=== PATIENT | female | born 1975 | race Caucasian/White ===

== ENCOUNTER 2023-08-09 12:54 | Emergency (ER) | payer MEDICAID, SELFPAY ==
[2023-08-09] VITALS (13 sets, daily range): BP systolic 154–166; BP diastolic 75–81; PULSE 84–104; RESP 15–25; TEMP 38.1–38.3; O2SAT 96–99
--- NOTE | 2023-08-09 13:15 | RT.EKG_ITS ---
APPROVED REPORT Exam: Resting ECG Reason for Exam: ? IN interval Patient Location: E HR:88 bpm ECG Measurements Heart Rate 88 AXIS IN 155 P 64 QRSd 98 QRS -54 QT 375 T 70 QTc 455 Conclusion Sinus rhythm...normal P axis, V-rate 60- 99 Left anterior fascicular block...axis(240,-40), init forces inf Narrow complex normal sinus rhythm at a rate of 88. Normal axis. Intervals within normal limits. N o ST segment abnormalities. T wave inversion in aVL. No prior for comparison. No acute injury kaycee green.
--- NOTE | 2023-08-09 13:15 | ED.GENADUL_ITS ---
Discharge Plan Disposition Patient Disposition: Home Discharge Details Clinical Impression: Cough with fever Primary Care Provider: She Stuart ED Provider: Apolinar Arshad Home Meds and New Rx's Prescriptions: New doxycycline hyclate 100 mg capsule 100 mg PO BID 14 Days Qty: 10 0RF fluconazole 150 mg tablet 150 mg PO ONCE Qty: 1 0RF Rx Instructions: as a single dose Continued acetaminophen [Tylenol] 325 MG tablet 650 mg PO Q4H PRN PRNQty: 0 0RF Rx Instructions: for pain metformin [Glumetza] 500 mg tablet,ER harry.retention 24 hr 500 mg PO DAILY duloxetine [Cymbalta] 20 mg capsule,delayed release(DR/EC) 20 mg PO DAILY Patient Comments: Tapering off. 20mg every other day Discharge Instructions Instructions: Fever, Adult (DC) Additional Instructions: You were seen in the emergency department for your cough and shortness of breath. Your CAT scan showed no sign of a blood clot in your lungs nor any signs of a pneumonia. As we discussed you are receiving an antibiotic to take to treat tick borne illnesses. Please cover up when outdoors and wear sunscreen and a hat as this antibiotic can make you sensitive to the sun. Please follow- up next week with your primary care provider. Please return to the emergency department if you develop worsening chest pain shortness of breath nausea or vom iting. Discharge Data Discharge Date/Time-TO BE ENTERED AT DEPARTURE: 08/09/23 16:14 HPI General Date/Time Provider Initiated Documentation: 08/09/23 13:06 . HPI Narrative: MDM This is an overall well-appearing but febrile and tachycardic 48-year-old female with myalgias cough shortness of breath concerning for multiple etiologies. Given fevers and cough I was concerned about sepsis so I melecio I lactate blood cultures and treated empirically with cefepime and vancomycin and added doxycycline to cover for tickborne illness. Patient is not altered to suggest anaplasmosis. No pain out of proportion to suggest necrotizing soft tissue infection. No dysuria nor frequency so doubt UTI. No nausea nor vomiting no diarrhea given her soft nontender abdomen with chronic abdominal pain I am not suspicious for appendicitis nor diverticulitis so I do not feel the patient required a CAT scan. Patient is not altered and has no nuchal rigidity so my suspicion is low for encephalitis and meningitis so I did not feel that she required a lumbar puncture. No sore throat to suggest strep pharyngitis. No recent travel to suggest atypical infection. Not immunocompromise so my suspicion is low for opportunistic infection. No rash to suggest zoster. Given shortness of breath with tachycardia and fever will obtain D-dimer to assess for PE. Will tolerate up to 1000 and based on years criteria. Patient is not an IV drug user and has no significant limitations in range of motion of her left hip so my suspicion for septic joint is low so I do not feel that the patient requires arthrocentesis. Will reassess following labs and imaging. 1:52 PM Normal reassuring lactate. CBC with no anemia no thrombocytopenia no leukocytosis. Mild lymphopenia. 2:09 PM Negative troponin. Comprehensive metabolic panel showing normal renal function. Mild anion gap mild hyperglycemia but normal bicarbonate??not consistent with DKA. Mildly elevated AST and ALT. Mild hypoalbuminemia. No BRENDAN. 2:43 PM Positive dimer at 5700 urinalysis nitrite leukoesterase negative not consistent with UTI. Will order CTA chest. Patient's tachycardia is resolved. She still febrile. Will treat with ibuprofen. Negative hCG. Fluvid negative. 08/09 Late charting due to patient care. No evidence of PE aneurysm or dissection. Unremarkable CT chest with known pneumonia. Patient's tachycardia improved. She remained mildly febrile but given that she was eating and drinking and had no nausea or vomiting I discharged her with a course of doxycycline. We discussed sun exposure and avoiding sun exposure by covering up and wearing sunscreen. I advised ED return for any syncope pain or if she had any other concerns. I advised primary care follow-up. Chronic conditions affecting the care of the patient: Elevated BMI History obtained from an outside historian: N/A External record review: No [facility] [place] Diagnostic interpretations performed by me: Per my independent interpretation chest x-ray shows:No acute cardiopulmonary process. Per my independent interpretation EKG shows: Narrow complex normal sinus rhythm at a rate of 88. Normal axis. Intervals within normal limits. No ST segment abnormalities. T wave inversion in aVL. No prior for comparison. No acute injury pattern. ]Medications: Doxycycline cefepime IV fluids vancomycin Social determinants of health affecting disposition: N/A Management discussed with: N/A Treatment/interventions considered: N/A Response to therapies provided: N/A HPI This is a 48-year-old female who spends significant amount of time outdoors arriving to the emergency department via private vehicle in the setting of [facility] [place] for the past approximately 2 weeks. Patient reports that she began having some left hip and right wrist swelling and pain. 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 She recalls that several weeks ago on her proximal right thigh she was bit by a tick. She is a daily smoker and drinks ethanol several times a week. She smokes marijuana. She denies IV drug use. She has had no nausea nor vomiting. She had some shortness of breath. She never had a PE nor DVT. She does not take oral contraceptive pills. She denies dysuria and frequency. She endorses chronic abdominal pain. No recent falls. No recent travel. No history of HIV. She also endorses a productive cough. No sore throat. Exam General: Well-appearing in no acute distress speaking in complete sentences. Head: Normocephalic, atraumatic. Eye: Extraocular eye movements intact. No conjunctival injection. No scleral icterus. Ear, nose, mouth, throat: Grossly normal inspection. Normal voice, handling secretions normally. Neck: Trachea midline. Cardiovascular: Well-perfused distal extremities. Rapid regular rate Respiratory: Nonlabored respiration. Clear lungs bilaterally Gastrointestinal: Nondistended abdomen. Soft. Nontender. No rebound. No guarding. Musculoskeletal: No edema. Moving all 4 extremities spontaneously. Good range of motion bilateral hips. No significant swelling bilateral wrists. No limitations in movement in the hands bilaterally. Skin: Normal for age and race, grossly normal temperature and turgor. No acute rash. With patient's nurse Naty patient rolled onto her side. She had no signs of any erythema migrans nor embedded ticks in the area on her proximal left thigh where she had removed a tick in the past. Neurologic: Alert and appropriate, no apparent acute deficits. GCS 15. Psychiatric: Mood and manner are appropriate. Grooming and personal hygiene are appropriate. Related Data Home Medications Medication Instructions Recorded Confirmed acetaminophen 325 mg tablet 650 mg (2 x 325 mg) PO Q4H PRN PRN 07/09/08/09/23 (Tylenol) ##0 doxycycline hyclate 100 mg capsule 100 mg PO BID 14 days #10 caps 08/09/23 duloxetine 20 mg capsule,delayed 20 mg PO DAILY 08/09/23 08/09/23 release (Cymbalta) fluconazole 150 mg tablet 150 mg PO ONCE #1 tab 08/09/23 metformin 500 mg 24 hr 500 mg PO DAILY 08/09/23 08/09/23 tablet,extended release (gastric retention) (Glumetza) Previous Rx's Medication Instructions Recorded acetaminophen 325 mg tablet 650 mg (2 x 325 mg) PO Q4H PRN PRN 07/09/16 (Tylenol) ##0 doxycycline hyclate 100 mg capsule 100 mg PO BID 14 days #10 caps 08/09/23 fluconazole 150 mg tablet 150 mg PO ONCE #1 tab 08/09/23 Allergies Allergy/AdvReac Type Severity Reaction Status Date / Time No Known Allergies Allergy Unverified 08/09/23 13:02 General Stated Complaint: Fever TRACE: 2 Course Vital Signs Vital signs: Vital Signs Temperature 38.1 C H 08/09/23 12:57 Pulse 104 H 08/09/23 12:57 Respiratory Rate 20 08/09/23 12:57 Blood Pressure 166/81 H 08/09/23 12:57 Pulse Oximetry 97 08/09/23 12:57 Temperature 38.1 C H 08/09/23 13:05 Temperature Source Oral 08/09/23 13:05 Pulse 104 H 08/09/23 13:05 Respiratory Rate 20 08/09/23 13:05 Blood Pressure 166/81 H 08/09/23 13:05 Pulse Oximetry 97 08/09/23 13:05 Oxygen Delivery Method Room Air 08/09/23 13:05 Oxygen Flow Rate 0 08/09/23 13:05 Pain Level 6 08/09/23 13:05 Lab/Test Results Lab/Test Results: 08/09/23 13:14 Blood Blood Culture - Pending 08/09/23 13:14 Blood Blood Culture - Pending Medical Decision Making Quality:SDOH Health Related Social Needs: No Data to Display PFSH All Active Problems (Updated 08/09/23 @ 15:59 by Apolinar Arshad MD) Cough with fever (Acute) Acute parotitis (Acute) Social History Smoking/Tobacco Use Status: Current every day Tobacco Type: cigarettes Smoking risk assessment performed?: Yes Alcohol Intake: current Alcohol Intake frequency: a few times a week Drug use: Daily Substance use type: marijuana Do you feel safe in your relationship?: Yes
[2023-08-09 13:41] LABS: Lactate 0.9 mmol/L (0.6-1.4)
[2023-08-09 13:48] LABS: Abs Immature Grans 0.02 10^3/uL (0.0-0.06); Absolute Basophil Count 0.02 10^3/uL (0.0-0.2); Absolute Lymphocyte Count 0.87 10^3/uL (1.2-3.4); Absolute Monocyte Count 0.29 10^3/uL (0.1-0.8); Absolute Neutrophil Count 3.77 10^3/uL (1.2-6.7); Basophils % 0.4 %; HCT 41.6 % (36.0-46.0); HGB 14.8 g/dL (11.2-15.7); Immature Grans % 0.4 %; Lymphocytes % 17.5 %; MCH 29.9 pg (27.0-33.0); MCHC 35.6 % (32.0-36.0); MCV 84 fL (80-95); MPV 9.3 fL (8.0-11.0); Monocytes % 5.8 %; Neutrophils % 75.9 %; Platelet Count 220 10^3/uL (130-400); RBC 4.95 10^6/uL (3.93-5.22); RDW 11.6 % (11.7-14.6); RDW-SD 35.2 fL; WBC 4.97 10^3/uL (4.4-10.8)
[2023-08-09] MEDS: Normal Saline 1,000 ML 1000 ML IV (14:00)
[2023-08-09] MEDS: Acetaminophen 500 MG TAB 1000 MG PO (14:00)
[2023-08-09] MEDS: Doxycycline Hyclate 100 MG CAP PO (14:00)
[2023-08-09] MEDS: CEFEPIME 2 GM in Normal Saline 100 ML IVPB (14:01)
[2023-08-09 14:02] LABS: ALT 61 U/L (14-59); AST 74 U/L (15-37); Albumin 3.3 g/dL (3.4-5.0); Alkaline Phosphatase 90 U/L (46-116); Anion Gap 12.5 mmol/L (3-11); BUN 3 mg/dL (7-18); Bilirubin, Total 0.48 mg/dL (0.2-1.0); CO2 23.5 mmol/L (21.0-32.0); CREATININE 0.6 mg/dL (0.55-1.02); Calcium 8.5 mg/dL (8.5-10.1); Chloride 98 mmol/L (98-107); Estimated GFR 109.28 (mL/min/1.73m2); Glucose 187 mg/dL (74-106); Potassium 3.9 mmol/L (3.5-5.1); Sodium 134 mmol/L (136-145); Total Protein 7.1 g/dL (6.4-8.2)
[2023-08-09 14:03] LABS: Troponin I < 50 ng/L (< or =60)
[2023-08-09 14:13] LABS: HCG Qual (Serum) Negative
[2023-08-09 14:13] LABS: Bilirubin Negative (Negative); Blood Negative (Negative); Clarity Clear (Clear); Glucose Negative (Negative); Ketones 40 mg/dL (Negative); Leukocyte Esterase Negative (Negative); Nitrite Negative (Negative); Urobilinogen 0.2 mg/dL (Up to 0.2); pH 5.5 (5-8)
[2023-08-09 14:16] LABS: D-Dimer 5716 ng/mlFEU (<500)
[2023-08-09 14:20] LABS: Bacteria Negative HPF (Negative); C & S Indicated? No; Casts 0-2 Hyaline LPF (Negative); Crystals Negative HPF (Negative); Epithelial Cells Few HPF (Negative); Mucus Moderate (Negative); RBC Negative HPF (0-2); WBC Negative HPF (0-5)
[2023-08-09 14:25] LABS: COVID-19 PCR Negative (Negative); Influenza A PCR Negative (Negative); Influenza B PCR Negative (Negative); RSV PCR Negative (Negative); Source Nasopharynx
--- NOTE | 2023-08-09 14:30 | DI.CT_ITS ---
Exam(s) CT CHEST PE CTA EXAM: CT CHEST PE CTA CLINICAL HISTORY: Fever chest pain. TECHNIQUE: Imaging Protocol: Axial CT angiography was performed with multi-slice acquisition and mu lti-planar and/or 3D reconstructions. CONTRAST MATERIAL: Intravenous: Omnipaque 350 contrast volume:100 mL COMPARISON: CT ABD PELVIS WITH CONTRAST from 05/02/2016 CR,XR XR PORTABLE CHEST AP from 08/09/2023 FINDINGS: Tracheobronchial tree: Patent where visualized. Pulmonary parenchyma: No consolidation or dominant measurable mass. No architectural distortion. Pulmonary Arteries: No evidence of filling defect to suggest pulmonary emboli. Mediastinum and Lisa: No dominant adenopathy or fluid collection. The esophagus is unremarkable. Visualized thyroid gland: Unremarkable. Pleura: No effusion or pneumothorax. Heart: The heart is not dilated. No coronary artery calcifications are seen. No pericardial effusion. Aorta: Thoracic aorta non-dilated. No evidence of dissection. Upper abdomen: Unremarkable. Soft tissues: Unremarkable. Bones: Within normal limits for the patient's age. IMPRESSION: 1. No evidence of pulmonary embolism, thoracic aortic dissection or aneurysm. 2. No acute pulmonary process. RADIATION DOSE DELIVERED: 420.26mGy.cm Total DLP DATA REPOSITORY: All CT scans at this facility are submitted to the National Radiology Data Registry (NRDR) Dose Index Registry (DIR) with the [employer] (A[employer]). RADIATION OPTIMIZATION: All CT scans at this facility use at least one of these dose optimization te chniques: automated exposure control; mA and/or kV adjustment per patient size (includes targeted exa ms where dose is matched to clinical indication); or iterative reconstruction.
--- NOTE | 2023-08-09 14:43 | DI.RAD_ITS ---
Exam(s) XR PORTABLE CHEST AP EXAM: XR PORTABLE CHEST AP CLINICAL HISTORY: Shortness of breath TECHNIQUE: 2D digital imaging was performed of the chest. One image was obtained. An AP view was ob tained. COMPARISON: No exams were available for comparison FINDINGS: MEDIASTINUM: Normal. HEART: Normal. PULMONARY VASCULATURE: Normal. LUNGS: Clear. PLEURAL SPACE: No pleural effusion or pneumothorax. BONE:Within normal limits for the patient's age. OTHER FINDINGS:Normal. IMPRESSION: No acute pulmonary findings. DATA REPOSITORY: RADIATION DOSE DELIVERED:
[2023-08-09] MEDS: Ibuprofen 600 MG TAB PO (14:51)
[2023-08-09] MEDS: Ondansetron 4 MG/2 ML VIAL IVP (15:01)
[2023-08-09] MEDS: VANCOMYCIN/WATER (PEG) 2 GM/400 ML BAG IVPB (15:01)
[2023-08-09] MEDS: Omnipaque 350 MG/ML 100 ML BTL IJ (15:34)
[2023-08-09] MEDS: Normal Saline - Diluent 50 ML VIAL IJ (15:35)
--- NOTE | 2023-08-09 15:41 | DI.VRAD_ITS ---
PROCEDURE INFORMATION: Exam: XR Chest Exam date and time: 08/09/2023 2:31 PM Age: 48 years old Clinical indication: Shortness of breath; Patient HX: SOB TECHNIQUE: Imaging protocol: Radiologic exam of the chest. Views: 1 view. COMPARISON: No relevant prior studies available. FINDINGS: Lungs: Unremarkable. No consolidation. Pleural spaces: Unremarkable. No pleural effusion. No pneumothorax. Heart/Mediastinum: Unremarkable. No cardiomegaly. Bones/joints: Unremarkable. IMPRESSION: No acute findings. Dictated and Authenticated by: Yolanda Mendoza MD. Ordering:TAMMY Jiang MD
--- NOTE | 2023-08-09 15:45 | DI.VRAD_ITS ---
PROCEDURE INFORMATION: Exam: CTA Chest With Contrast Exam date and time: 08/09/2023 3:25 PM Age: 48 years old Clinical indication: Other: Unspecified; Patient HX: Chest pain, fever TECHNIQUE: Imaging protocol: Computed tomographic angiography of the chest with contrast. Exam focused on the arteries. 3D rendering (Not supervised by radiologist): MIP and/or 3D reconstructed images were created by the technologist. COMPARISON: CR XR PORTABLE CHEST AP 08/09/2023 2:31 PM FINDINGS: Pulmonary arteries: No evidence of pulmonary embolus to the segmental level. Aorta: No aneurysm of the aorta. No dissection of the aorta. Lungs: Unremarkable. No consolidation. No masses. Pleural spaces: Unremarkable. No pneumothorax. No pleural effusion. Heart: Unremarkable. No cardiomegaly. No pericardial effusion. Lymph nodes: Unremarkable. No enlarged lymph nodes. Bones/joints: Unremarkable. No acute fracture. Soft tissues: Unremarkable. IMPRESSION: 1. No evidence of pulmonary embolus to the segmental level. 2. No aneurysm of the aorta. 3. No dissection of the aorta. Dictated and Authenticated by: Yolanda Mendoza MD. Ordering:TAMMY Jiang MD
[2023-08-11 13:50] LABS: Lyme Ab w Rflx to Lyme Confirm Negative (Negative)
[2023-08-12 19:32] LABS: Anaplasma phagocytophilum Negative (Negative); B. miyamotoi PCR Negative (Negative); Babesia divergens/MO-1 Negative (Negative); Babesia duncani Negative (Negative); Babesia microti Negative (Negative); Ehrlichia chaffeensis Negative (Negative); Ehrlichia ewingii/canis Negative (Negative); Ehrlichia muris eauclairensis Negative (Negative)
== END 2023-08-09 16:14 | disposition home or self-care (01) ==
PROVIDERS: Emergency Provider Emergency Medicine; PCP Physician Assistant
DX: R50.9 Fever, unspecified (principal); R06.02 Shortness of breath; R05.9 Cough, unspecified; R79.89 Other specified abnormal findings of blood chemistry; E66.3 Overweight; Z68.33 Body mass index [BMI] 33.0-33.9, adult
CPT/HCPCS: 36415; 71275; 80053; 87040; 87637; 87798; 93005; 96365; 96367; 96375; 99285; 71045; 81003; 81015; 83605; 84484; 84703; 85025; 85379; 86618; 93010; J0692; J2405; J3372; J3490

== ENCOUNTER 2023-12-04 02:00 | Outpatient (CLI) | payer MEDICAID, SELFPAY ==
--- NOTE | 2023-12-04 | DI.US_ITS ---
Exam(s) US ABDOMEN LIMITED EXAM: US ABDOMEN LIMITED CLINICAL HISTORY: RUQ PAIN R10.11 TECHNIQUE: Ultrasound abdomen performed using standard protocol. COMPARISON: CT ABD PELVIS WITH CONTRAST from 05/02/[address] CHEST PE CTA from 08/09/2023 FINDINGS: There is no ascites evident. LIVER: Mildly hyperechoic indicating element of steatosis. Normal size. No discrete focal hepatic l esions evident. GALLBLADDER/BILIARY: There are no gallstones. No gallbladder wall edema nor pericholecystic fluid. The common hepatic duct isnot dilated, measuring 3-4mm at the level of alverto hepatis. PANCREAS: There is no evidence of pancreatic mass nor dilatation of the pancreatic duct. RIGHT KIDNEY:No evidence of solid mass, calculus, nor hydronephrosis. No cortical cysts evident. IMPRESSION: 1. No evidence of cholelithiasis nor dilatation of the biliary tree. 2. Mildly hyperechoic liver implying an element of steatosis. Liver size is normal. There no discr ete focal hepatic lesions. 3. No other right upper quadrant ultrasound findings and there is no ascites. DATA REPOSITORY:
== END 2023-12-04 02:20 ==
PROVIDERS: PCP Physician Assistant; Visit Provider Nurse Practitioner
DX: K76.0 Fatty (change of) liver, not elsewhere classified (principal)
CPT/HCPCS: 76705

== ENCOUNTER 2024-06-24 20:14 | Emergency (ER) | payer MEDICAID, SELFPAY ==
[2024-06-24] VITALS (25 sets, daily range): BP systolic 124–224; BP diastolic 80–131; PULSE 49–117; RESP 10–23; TEMP 36.6; O2SAT 94–99
--- NOTE | 2024-06-24 20:15 | DI.RAD_ITS ---
Exam(s) XR PORTABLE CHEST AP EXAM: XR PORTABLE CHEST AP CLINICAL HISTORY: Chest pain. TECHNIQUE: 2D digital imaging was performed. COMPARISON: CR,XR XR PORTABLE CHEST AP from 08/09/2023 FINDINGS: Single AP portable view. Heart size is upper normal. The mediastinum is not widened. Lungs are clear. No infiltrates nor obvious pleural effusions. IMPRESSION: No acute pulmonary findings on this single AP portable view of the chest. DATA REPOSITORY: RADIATION DOSE DELIVERED:
--- NOTE | 2024-06-24 20:15 | RT.EKG_ITS ---
APPROVED REPORT Exam: Resting ECG Reason for Exam: Fall Patient Location: E HR:83 bpm ECG Measurements Heart Rate 83 AXIS MT 169 P 56 QRSd 104 QRS -49 QT 400 T 76 QTc 471 Conclusion Sinus rhythm...normal P axis, V-rate 60- 99 Probable left atrial enlargement...P >50mS, <-0.10mV V1 Incomplete RBBB and LAFB...axis(240,-40), S>R II III aVF Anterior infarct, possibly acute...ST >0.15mV, upright T, V2-V5 ST elevation, consider inferior injury...ST >0.08mV, II III aVF
--- NOTE | 2024-06-24 20:25 | ED.GENADUL_ITS ---
Discharge Plan Disposition Patient Disposition: Transfer-Acute Inpatient Care Specific Acute Inpt Facility: [facility] Condition: Improving Discharge Details Chief Complaint: Chest Pain Clinical Impression: ST elevation (STEMI) myocardial infarction, ACS (acute coronary syndrome) Primary Care Provider: She Stuart ED Provider: Korey Hart Home Meds and New Rx's Prescriptions: No Action acetaminophen [Tylenol] 325 MG tablet 650 mg PO Q4H PRN PRNQty: 0 0RF Rx Instructions: for pain metformin [Glumetza] 500 mg tablet,ER harry.retention 24 hr 500 mg PO DAILY duloxetine [Cymbalta] 20 mg capsule,delayed release(DR/EC) 20 mg PO DAILY Patient Comments: Tapering off. 20mg every other day fluconazole 150 mg tablet 150 mg PO ONCE Qty: 1 0RF Rx Instructions: as a single dose HPI General Date/Time Provider Initiated Documentation: 06/24/24 20:25 . HPI Narrative: Patient presents to the emergency department complaining of severe substernal chest pain which she describes as pressure and sharp in nature radiated to her left arm that started about 30 minutes prior to arrival. Patient states that for the last week after her dog she was having intermittent as of's episodes of chest pressure. Today she decided to drink some beer prior to arrival and with a friend and then started experiencing chest pressure on and off and as I described 30 minutes prior to arrival started having severe pain which brought her to the emergency department. She is here with severe 10/10 sharp and pressure pain that she describes as someone squeezing her chest rating to her left arm she is very anxious. Patient is a type II diabetic on metformin smokes half a pack of cigarettes a day unknown her lipid profile and states that her dad at age 45 of coronary artery disease. Related Data Home Medications ?Medication ?Instructions ?Recorded ?Confirmed acetaminophen 325 mg tablet 650 mg (2 x 325 mg) PO Q4H PRN PRN 07/09/16 06/24/24 (Tylenol) ##0 duloxetine 20 mg capsule,delayed 20 mg PO DAILY 08/09/23 06/24/24 release (Cymbalta) fluconazole 150 mg tablet 150 mg PO ONCE #1 tab 08/09/23 06/24/24 metformin 500 mg 24 hr 500 mg PO DAILY 08/09/23 06/24/24 tablet,extended release (gastric retention) (Glumetza) Previous Rx's ?Medication ?Instructions ?Recorded acetaminophen 325 mg tablet 650 mg (2 x 325 mg) PO Q4H PRN PRN 07/09/16 (Tylenol) ##0 fluconazole 150 mg tablet 150 mg PO ONCE #1 tab 08/09/23 Allergies Allergy/AdvReac Type Severity Reaction Status Date / Time No Known Allergies Allergy Verified 06/24/24 20:33 General Stated Complaint: Chest Pain TRACE: 3 Review of Systems Narrative: Review of Systems: Constitutional: No fevers, chills, sweats Eye: No recent visual problems ENT: No ear pain, nasal congestion, sore throat Respiratory: No shortness of breath, cough Cardiovascular: N0, palpitations, syncope Gastrointestinal: No nausea, vomiting, diarrhea Genitourinary: No hematuria Kiko/Lymph: Negative for bruising tendency, swollen lymph glands Endocrine: Negative for excessive thirst, excessive hunger Musculoskeletal: No back pain, neck pain, joint pain, muscle pain, decreased range of motion Integumentary: No rash, pruritus, abrasions Neurologic: Alert & oriented X 4 Exam Narrative Exam Narrative: Exam; abnormal vital signs as reported above hypertensive Constitutional; very anxious hyperventilating in severe distress General: Anxious screaming in pain in severe distress HEENT: Head: normal to inspection, no palpable skull fracture and normocephalic atraumatic Eyes: : appearance normal, both eyes and all related structures EOM intact bilaterally Pupils: PERRL : conjunctiva normal Direct ophthalmoscopy: normal light reflex, normal conjunctiva, normal visual acuity Ears: Normal TM, normal external canal Nose: normal no rhinorreha Neck no JVD, supple non tender Neck: normal visual inspection, full ROM and no lymphadenopathy Chest: normal inspection of the chest Respiratory : normal respiratory effort and able to speak in complete sentences no wheezing no rales Cardio Rate: regular rate, rhythm: regular rhythm normal heart sounds S1 and S2 no murmurs, gallops, or rubs GI : normal to inspection, normal bowel sounds, soft, non tender, non distended, no organomegaly Back/Spine/ no CVA tenderness Thoracic/Lumbar Spine: no tenderness or deformities Skin no rashes or lesions Neuro: patient alert oriented x 4 and no meningeal signs, Cranial Nerves: CN's II-XI intact bilaterally, Cognition: normal cognition, Speech: speech normal, Gait: normal gait, Depp tendon reflexes normal 2+ muscle strength 5/5 bilaterally Extremities, no edema, full range of motion, normal strength Course Reevaluation(s) Time: 20:30 Reevaluation: Patient with pain still in anxiety who received sublingual nitroglycerin and aspirin with a STEMI showing ST segment elevation in V1-V5 Time: 21:20 Reevaluation #2: Patient who is almost pain-free after receiving morphine and IV nitroglycerin with normalization of the second electrocardiogram Consultations Consultation #1: Consulted with Dr. Chuck Brooks spot remover at [facility] who was accepted the patient and Dr. Gomes who is his attending to be transferred [facility] Time: 21:00 Vital Signs Vital signs: Vital Signs Temperature 36.6 C 06/24/24 20:16 Pulse 94 H 06/24/24 20:16 Respiratory Rate 20 06/24/24 20:16 Blood Pressure 224/131 H 06/24/24 20:16 Pulse Oximetry 99 06/24/24 20:16 Temperature 36.6 C 06/24/24 20:16 Temperature Source Oral 06/24/24 20:16 Pulse 94 H 06/24/24 20:16 Respiratory Rate 20 06/24/24 20:16 Blood Pressure 224/131 H 06/24/24 20:16 Blood Pressure Position Supine 06/24/24 20:16 Pulse Oximetry 99 06/24/24 20:16 Oxygen Delivery Method Room Air 06/24/24 20:16 Oxygen Flow Rate 0 06/24/24 20:16 Pain Level 9 06/24/24 20:16 Medical Decision Making MDM: Summary: Patient presents emergency department complaining of severe chest pressure after she had a week of intermittent chest pressure. First EKG shows ST segment elevation V1 to the 3 and hyperacute T waves in V4 V5. Blood pressure was very high at 224 at 131 very anxious. She received aspirin, morphine sublingual nitroglycerin and IV nitroglycerin.. She also was taken to CT angiogram and a POCUS echocardiogram was done which shows hypokinesis of the anteroseptal wall. After IV nitroglycerin her pain is completely gone and her repeat EKG shows normalization of the ST segment elevation. I spoke with Dr. Chuck Brooks at [facility] who was has accepted the patient in transfer he requested heparinization but at this time he did not request antilipid therapy or anticoagulation. Except for the aspirin. Patient will be flown by helicopter to [facility] for the [facility]. Data Review Analysis All the data on this patient was reviewed by me including laboratory and imaging studies as well as bedside studies performed by me Independent review of Studies Imaging CT scan and POCUS as described above Lab: Labs show elevation of troponin to 104 Risk Stratification: Patient with a high heart score and chest pain with ST segment elevation compatible with a STEMI patient rapidly received nitroglycerin aspirin heparin and a statin. Aortic dissection was ruled out immediately and Dr. Loyola was contacted [facility] accepted the patient to be taken to the [facility]. Her ST segments normalized and she is pain-free now her troponin is elevated at 104 Differential Diagnosis: 1. Acute coronary syndrome 2. STEMI 3. Takotsubo cardiomyopathy 4. Unstable angina 5. Consultants: Dr. Brooks fellow of cardiology at [facility] Shared disposition: Patient understands the disposition states that she is pain-free and very flown out to [facility] medical Impression: Medical Records Medical records reviewed: Yes I reviewed the patient's medical records. Imaging Data Radiologic Study: Attestation: I personally reviewed and interpreted this imaging study as follows: Imaging: CT Scan My impression: No evidence of aortic dissection Lab Data Lab results reviewed: Yes I reviewed the patient's lab results. ECG Data Attestation: I personally reviewed and interpreted this ECG (s) as follows: Prior ECG tracings: available for review Interpretation: Heart rate of 83 ST segment elevation V1 V2 V3 and hyperacute T waves in V4 V5 V6 compatible with an ST segment ovation myocardial infarction anteroseptal Core Measures AMI Core Measures Followed: Yes Measure exclusions: not indicated Quality:SDOH Health Related Social Needs: 2 No Data to Display Critical Care Time Critical Care Time Critical Care Time: Yes Total Critical Care Time: 35 Attestation: 35 minutes of critical care time with pending cardiovascular collapse PFSH All Active Problems (Updated 06/24/24 @ 22:02 by Korey Hart MD) ACS (acute coronary syndrome) (Acute) ST elevation (STEMI) myocardial infarction (Acute) Acute parotitis (Acute) Social History Smoking/Tobacco Use Status: Current every day Tobacco Type: cigarettes Smoking risk assessment performed?: Yes Alcohol Intake: current Alcohol Intake frequency: a few times a week Drug use: Daily Substance use type: marijuana Do you feel safe in your relationship?: Yes POCUS Exam (ED) Limited Cardiac Exam DATE OF EXAM: 06/24/24 TIME OF EXAM: 20:30 PROVIDER THAT PERFORMED THE STUDY: Korey Hart IS THIS A REPEAT EXAM DURING THIS ENCOUNTER: no REASON FOR EXAM: Chest pain VISUALIZED STRUCTURES: Four Chambers, Left atrium, Left ventricle, LVOT, Right atrium, Right ventricle, Aortic valve, Mitral valve, Interventricular septum and IVC VIEW OBTAINED: Apical 4-Chamber, Parasternal long-axis, Parasternal short-axis, Subxiphoid and Other (aorta) PERTINENT FINDINGS/IMPRESSION: LV dysfunction (Hypokinesis of the anteroseptal wall apex and mid section) :mild DIFFERENTIAL DIAGNOSES: STEMI Exam complete (Anteroseptal hypokinesis) Vital Signs & Lab Results Vital Signs Most Recent Vital Signs: Most Recent Vital Signs Temp Pulse Resp BP Pulse Ox 36.6 C 94 H 20 224/131 H 99 06/24/24 20:16 06/24/24 20:16 06/24/24 20:16 06/24/24 20:16 06/24/24 20:16 Point of Care Results Nursing Point of Care Results: 2 No Data to Display Lab Results 06/24/24 20:26 06/24/24 20:26 Blood Type / Crossmatch: 2 No Data to Display Complete Blood Count: 2 White Blood Count 10.88 10^3/uL (4.4-10.8) H 06/24/24 20:26 Red Blood Count 5.45 10^6/uL (3.93-5.22) H 06/24/24 20:26 Hemoglobin 16.6 g/dL (11.2-15.7) H 06/24/24 20:26 Hematocrit 46.9 % (36.0-46.0) H 06/24/24 20:26 Platelet Count 451 10^3/uL (130-400) H 06/24/24 20:26 Complete Metabolic Panel: 2 Sodium 138 mmol/L (136-145) 06/24/24 20:26 Potassium 3.5 mmol/L (3.5-5.1) 06/24/24 20: Chloride 101 mmol/L (98-107) 06/24/24 20: Carbon Dioxide 24.6 mmol/L (21.0-32.0) 06/24/24 20: BUN 6 mg/dL (7-18) L 06/24/24 20: Creatinine 0.7 mg/dL (0.55-1.02) 06/24/24 20: Est GFR (CKD-EPI 2020) 104.65 (mL/min/1.73m2) 06/24/24 20: Calcium 9.3 mg/dL (8.5-10.1) 06/24/24: Albumin 4.1 g/dL (3.4-5.0) 06/24/24 20: Glucose 214 mg/dL (74-106) H 06/24/24 20: Liver Function Panel: 2 Alanine Aminotransferase (ALT/SGPT) 14 U/L (14-59) 06/24/24 20: Aspartate Amino Transf (AST/SGOT) 13 U/L (15-37) L 06/24/24 20: Coagulation Panel: 2 INR International Normalized Ratio 1.0 (0.9-1.1) 06/24/24 20:2 6 Prothrombin Time 9.6 sec (9.1-11.1) 06/24/24 20: D-Dimer 274 ng/mlFEU (<500) 06/24/24 20: Cardiac Panel: 2 Troponin I 104 ng/L (<or=51) H* 06/24/24 Arterial Blood Gas: 2 No Data to Display Venous Blood Gas: 2 No Data to Display Pancreas Panel: 2 No Data to Display Thyroid Panel: 2 No Data to Display Infectious Disease: 2 No Data to Display Blood Cultures: 2 No Data to Display Toxicology Panel: 2 No Data to Display Panel: 2 No Data to Display
[2024-06-24] MEDS: nitroGLYcerin 0.4 MG TAB SL ×3 (20:30→20:40)
[2024-06-24] MEDS: Aspirin 81 MG CHEW 324 MG CH (20:36)
[2024-06-24] MEDS: MORPHine 10 MG/ML VIAL 4 MG IVP (20:37)
[2024-06-24 20:42] LABS: Abs Immature Grans 0.02 10^3/uL (0.0-0.06); HCT 46.9 % (36.0-46.0); HGB 16.6 g/dL (11.2-15.7); MCH 30.5 pg (27.0-33.0); MCHC 35.4 % (32.0-36.0); MCV 86 fL (80-95); MPV 8.9 fL (8.0-11.0); Platelet Count 451 10^3/uL (130-400); RBC 5.45 10^6/uL (3.93-5.22); RDW 12.3 % (11.7-14.6); RDW-SD 38.4 fL; WBC 10.88 10^3/uL (4.4-10.8)
[2024-06-24] MEDS: fentaNYL 100 MCG/2 ML VIAL (20:42)
[2024-06-24 20:52] LABS: Prothrombin Time 9.6 sec (9.1-11.1)
[2024-06-24 20:58] LABS: ALT 14 U/L (14-59); AST 13 U/L (15-37); Albumin 4.1 g/dL (3.4-5.0); Alkaline Phosphatase 81 U/L (46-116); Anion Gap 12.4 mmol/L (3-11); BUN 6 mg/dL (7-18); Bilirubin, Total 0.3 mg/dL (0.2-1.0); CO2 24.6 mmol/L (21.0-32.0); CREATININE 0.7 mg/dL (0.55-1.02); Calcium 9.3 mg/dL (8.5-10.1); Chloride 101 mmol/L (98-107); Estimated GFR 104.65 (mL/min/1.73m2); Glucose 214 mg/dL (74-106); Potassium 3.5 mmol/L (3.5-5.1); Sodium 138 mmol/L (136-145); Total Protein 7.9 g/dL (6.4-8.2)
[2024-06-24] MEDS: nitroGLYcerin in D5W 50 MG/250 ML BTL IV (20:59)
[2024-06-24 21:00] LABS: Troponin I 104 ng/L (<or=51)
[2024-06-24 21:08] LABS: Absolute Basophil Count 0.11 10^3/uL (0.0-0.2); Absolute Eosinophil Count 0.22 10^3/uL (0.0-0.7); Absolute Lymphocyte Count 5.98 10^3/uL (1.2-3.4); Absolute Monocyte Count 0.65 10^3/uL (0.1-0.8); Absolute Neutrophil Count 3.92 10^3/uL (1.2-6.7); Diff Comment Manual Differential; RBC Morphology Normal
--- NOTE | 2024-06-24 21:15 | RT.EKG_ITS ---
APPROVED REPORT Exam: Resting ECG Reason for Exam: Chest Pain Patient Location: E HR:84 bpm ECG Measurements Heart Rate 84 AXIS NM 173 P 49 QRSd 104 QRS -54 QT 418 T 71 QTc 495 Conclusion Sinus rhythm...normal P axis, V-rate 60- 99 Probable left atrial enlargement...P >50mS, <-0.10mV V1 Left anterior fascicular block...axis(240,-40), init forces inf
--- NOTE | 2024-06-24 21:15 | DI.CT_ITS ---
Exam(s) CT THORAX ABDOMEN CTA EXAM: CT THORAX ABDOMEN CTA CLINICAL HISTORY: chest pain. TECHNIQUE: Imaging Protocol: Axial computed tomography images with coronal and sagittal reformatted images were created and reviewed CONTRAST MATERIAL: Intravenous: Omnipaque 350 Contrast volume:100 ml Oral: None COMPARISON: CT CT CHEST PE CTA from 08/09/2023 FINDINGS: CHEST: AORTA: The diameter of the ascending thoracic aorta is normal. There is minimal if any significant a therosclerotic disease in the aortic arch and descending thoracic aorta nor within the abdominal aort a. There is no evidence of aneurysm in the thoracic and abdominal aorta is nor in the included commo n iliac arteries. Also no significant stenosis of these vessels. Celiac and superior mesenteric art eries exhibit no significant stenosis nor intraluminal thrombi. Inferior mesenteric artery is patent . There is also no significant stenosis in the renal arteries. PULMONARY ARTERIES: No intraluminal filling defects to suggest the presence of pulmonary emboli. LUNGS: No infiltrates nor pleural effusions. No ominous pulmonary nodules evident.. No pleural effu sions. MEDIASTINUM: There is no hilar nor mediastinal adenopathy. Visualized thyroid unremarkable. CARDIAC: Heart size is normal. There is no pericardial effusion. No shift of the interventricular s eptum. ABDOMEN: There is no evidence of abdominal aortic aneurysm nor dissection.There is no aneurysmal dilatation of the common iliac arteries.The celiac and superior mesenteric arteries are patent. There is no ascites. LIVER: Liver is hypodense implying steatosis. There no discrete focal hepatic lesions evident. GALLBLADDER/BILIARY: No obvious gallbladder pathology. CBD is not dilated. PANCREAS: No evidence of pancreatic mass nor dilatation of the pancreatic duct. SPLEEN: Spleen is not enlarged. There are no intrasplenic lesions. Splenic and portal veins are de [place] santos nt. ADRENALS: There are no significant adrenal masses. KIDNEYS: No cysts evident. No calculi nor hydronephrosis. No solid renal masses. ABDOMINAL AORTA: The abdominal aorta is not enlarged. LYMPH NODES: There is no retroperitoneal nor para-aortic adenopathy. No obvious mesenteric masses. ABDOMINAL WALL: No evidence of significant anterior abdominal wall hernia. GI: There is no evidence of bowel obstruction, free air, nor abscess. Appendix not included in the field of view of this study as pelvis was not scanned. z IMPRESSION: 1. No significant findings in the thoracic and abdominal aorta. No aneurysms. No dissection. 2. Hepatic steatosis incidentally noted. There no discrete focal hepatic lesions evident. RADIATION DOSE DELIVERED: 415.93mGy.cm Total DLP DATA REPOSITORY: All CT scans at this facility are submitted to the National Radiology Data Registry (NRDR) Dose Index Registry (DIR) with the [employer] (ACR). RADIATION OPTIMIZATION: All CT scans at this facility use at least one of these dose optimization te chniques: automated exposure control; mA and/or kV adjustment per patient size (includes targeted exa ms where dose is matched to clinical indication); or iterative reconstruction.
[2024-06-24 21:22] LABS: D-Dimer 274 ng/mlFEU (<500)
[2024-06-24] MEDS: Normal Saline - Diluent 50 ML VIAL IJ (21:26)
--- NOTE | 2024-06-24 21:27 | DI.VRAD_ITS ---
PROCEDURE INFORMATION: Exam: XR Chest Exam date and time: 06/24/2024 8:36 PM Age: 49 years old Clinical indication: Other: Chest pain TECHNIQUE: Imaging protocol: Radiologic exam of the chest. Views: 1 view. COMPARISON: CT CHEST PE CTA 08/09/2023 3:25 PM FINDINGS: Lungs: Unremarkable. No consolidation. Pleural spaces: Unremarkable. No pleural effusion. No pneumothorax. Heart/Mediastinum: Unremarkable. No cardiomegaly. Bones/joints: Unremarkable. IMPRESSION: No acute findings. Dictated and Authenticated by: Charles Voss MD. Orderin Tanner Nair MD
[2024-06-24] MEDS: Omnipaque 350 MG/ML 100 ML BTL IJ (21:32)
--- NOTE | 2024-06-24 21:44 | DI.VRAD_ITS ---
PROCEDURE INFORMATION: Exam: CTA Chest With Contrast CTA Abdomen With Contrast Exam date and time: 06/24/2024 9:23 PM Age: 49 years old Clinical indication: Chest pressure; Chest pain TECHNIQUE: Imaging protocol: Computed tomographic angiography of the chest with contrast. Exam focused on the arteries. Computed tomographic angiography of the abdomen with contrast. Exam focused on the arteries. 3D rendering (Not supervised by radiologist): MIP and/or 3D reconstructed images were created by the technologist. Radiation optimization: All CT scans at this facility use at least one of these dose optimization techniques: automated exposure control; mA and/or kV adjustment per patient size (includes targeted exams where dose is matched to clinical indication); or iterative reconstruction. Contrast material: [id number]; Contrast volume: 100 ml; Contrast route: INTRAVENOUS (IV); COMPARISON: CT CHEST PE CTA 08/09/2023 3:25 PM FINDINGS: VASCULATURE: Pulmonary arteries: Normal. No pulmonary emboli. Aorta: No aortic aneurysm. No aortic dissection. Celiac trunk and mesenteric arteries: No occlusion or significant stenosis. Renal arteries: No occlusion or significant stenosis. CHEST: Lungs: Unremarkable. No consolidation. No masses. Pleural spaces: Unremarkable. No pneumothorax. No pleural effusion. Heart: Unremarkable. No cardiomegaly. No pericardial effusion. ABDOMEN AND PELVIS: Liver: Fatty infiltration of the liver. Gallbladder and biliary ducts: Unremarkable. No calcified stones. No ductal dilation. Pancreas: Unremarkable. No mass. No ductal dilation. Spleen: Unremarkable. No splenomegaly. Adrenal glands: Unremarkable. No mass. Kidneys: Unremarkable kidneys. No solid mass. No hydronephrosis. Stomach and bowel: Unremarkable. No obstruction. No mucosal thickening. Intraperitoneal space: Unremarkable. No free air. No significant fluid collection. Lymph nodes: Unremarkable. No enlarged lymph nodes. Bones/joints: Unremarkable. No acute fracture. Soft tissues: Unremarkable. IMPRESSION: 1. Normal CTA examination of the chest. 2. Normal CTA examination of the abdomen. 3. Fatty infiltration of the liver. Dictated and Authenticated by: Charles Voss MD. Orderin Tanner Nair MD
[2024-06-24] MEDS: Heparin 5,000 UNITS/ML VIAL 5600 UNITS IV (21:45)
[2024-06-24 22:05] LABS: Troponin I 1125 ng/L (<or=51)
== END 2024-06-24 22:09 | disposition short-term general hospital (02) ==
PROVIDERS: Emergency Provider Emergency Medicine Emergency Medical Services; PCP Physician Assistant
DX: I21.09 ST elevation (STEMI) myocardial infarction involving other coronary artery of anterior wall (principal); I24.9 Acute ischemic heart disease, unspecified; I45.2 Bifascicular block; E11.9 Type 2 diabetes mellitus without complications; F17.210 Nicotine dependence, cigarettes, uncomplicated; Z79.85 Long-term (current) use of injectable non-insulin antidiabetic drugs; Z82.49 Family history of ischemic heart disease and other diseases of the circulatory system
CPT/HCPCS: 71275; 74175; 80053; 93005; 93308; 96374; 99285; 71045; 84484; 85025; 85379; 85610; 93010; J1644; J2270; J2305; J3010; J3490

== ENCOUNTER 2024-07-09 10:00 | Outpatient (RCR) | payer MEDICAID, SELFPAY ==
--- NOTE | 2024-06-30 10:15 | RT.EKG_ITS ---
APPROVED REPORT Exam: Resting ECG Reason for Exam: Baseline Patient Location: O HR:72 bpm ECG Measurements Heart Rate 72 AXIS MA 166 P 74 QRSd 112 QRS -76 QT 441 T 78 QTc 483 Conclusion Sinus rhythm...normal P axis, V-rate 50- 99 Right atrial enlargement...P>0.25mV 2 lds or<-0.24mV aVR/aVL Incomplete RBBB and LAFB...axis(240,-40), S>R II III aVF Probable left ventricular hypertrophy...(RaVL+SV3)xQRSd >300
== END 2024-07-10 23:59 | disposition home or self-care (01) ==
LOC: CR 10:00
PROVIDERS: PCP Physician Assistant; Visit Provider Internal Medicine Cardiovascular Disease
DX: I21.09 ST elevation (STEMI) myocardial infarction involving other coronary artery of anterior wall (principal); Z95.5 Presence of coronary angioplasty implant and graft; Z51.89 Encounter for other specified aftercare
CPT/HCPCS: S9472

== ENCOUNTER 2024-08-02 10:00 | Outpatient (RCR) | payer MEDICAID, SELFPAY | END 2024-08-09 23:59 | disposition home or self-care (01) | LOC: CR 10:00 | PROVIDERS: PCP Physician Assistant; Visit Provider Internal Medicine Cardiovascular Disease | DX: I21.3 ST elevation (STEMI) myocardial infarction of unspecified site (principal); Z95.5 Presence of coronary angioplasty implant and graft; Z51.89 Encounter for other specified aftercare | CPT/HCPCS: S9472 ==

== ENCOUNTER 2024-09-10 01:07 | Outpatient (CLI) | payer MEDICAID, SELFPAY ==
--- NOTE | 2024-09-10 12:30 | DI.US_ITS ---
APPROVED REPORT EXAM: Comprehensive 2D, Doppler, and color-flow Echocardiogram Patient Location: Out-Patient Floor Helper: Arpit Linn RDCS (AE) Indications: NSTEMI Other Information Study Quality: Good Conclusion Normal left ventricular wall thickness and chamber size. Ejection fraction is 60 to 65%. Wall motion is normal Normal right ventricular size and function Both atria are normal in size There is no structural or hemodynamically significant valvular disease Wall motion Left Ventricle The left ventricle is normal size. The left ventricular systolic function is normal. The left ventricular ejection fraction is within the normal range. There is normal left ventricular wall thickness. There is normal LV segmental wall motion. There is no ventricular septal defect visualized. LVEF is 60-65%. Right Ventricle The right ventricle is normal size. The right ventricular systolic function is normal. Atria The left atrium size is normal. The right atrium size is normal. The interatrial septum is intact with no evidence for an atrial septal defect. Aortic Valve The aortic valve is normal in structure. Aortic valve is trileaflet. There is no aortic valvular stenosis. No aortic regurgitation is present. Mitral Valve The mitral valve is normal in structure. No evidence of mitral valve stenosis. There is no mitral valve regurgitation noted. Tricuspid Valve The tricuspid valve is normal in structure. There is no tricuspid valve stenosis. Trace to mild tricuspid regurgitation. Pulmonic Valve The pulmonary valve is normal in structure. There is no pulmonic valvular stenosis. There is no pulmonic valvular regurgitation. Great Vessels The aortic root is normal in size. The ascending aorta is normal in size. Aortic arch is normal in caliber. IVC is normal in size and collapses >50% with inspiration. Pericardium There is no pericardial effusion. 2D Dimensions IVSD d PLAX 0.97 cm F: 0.6-1.0 Ao Root d 2.72 cm F: 2.7 - 3.3 LVPW d PLAX 1.01 cm F: 0.6 - 1.0 Ao Asc Diam d 2.84 cm F: 2.3 - 3.1 LVID d PLAX 4.23 cm F: 3.8 - 5.2 LVDs 2.89 cm F: 2.2 - 3.5 LV EF Teichholz 60.1 % FS 31.71 % LV EDV (Teich) 79.9 mL LV ESV (Teich) 31.9 mL Stroke Vol Index (Teich) 25.12 M-Mode TAPSE 2.17 cm (M/F) >1.7 Auto EF LV EDV A4C 82.0 mL LV EDV A2C 105.8 mL LV EDV BP 99.0 mL LV ESV A4C 31.5 mL LV ESV A2C 36.7 mL LV ESV BP 34.3 mL LVEF(%) A4C 61.6 % LVEF(%) A2C 65.4 % LVEF(%) BP 65.3 % LV SV A4C 50.5 ml LV SV A2C 69.1 ml LV SV BP 64.7 ml LV CO A4C 2.6 L/min LV CO A2C 4.4 L/min LV CO BP 3.5 L/min HR A4C 50.62 BPM HR A2C 62.94 BPM LV EDV Index (BP) LA Volume LA Length A4C 4.2 cm LA Length A2C 3.6 cm LA Area A4C s 11.29 cm2 LA Area A2C s 9.66 cm2 LA Vol A4C A-L 25.87 mL LA Vol A2C A-L 21.81 mL LA Vol Biplane A-L 25.5 mL LA Vol/BSA A4C A-L LA Vol/BSA A2C A-L LA Vol/BSA BP A-L 13.3 mL/m2 LA Vol A4C MOD 24.7 mL LA Vol A2C MOD 19.2 mL LA Vol BP MOD 23.1 mL RA Volume RA Area A4C 10.0 cm2 RA ESV A4C (A-L) 20.2mL RA Vol/BSA A4C A-L RA Length A4C 4.2 cm RA ESV A4C (MOD) 19.6mL LV Diastology MV E' medial 0.087 (>0.07 m/s) MV E Vmax 0.76 (0.4-1.3 m/s) MV E/E' MED 8.72 (<14) MV A Vmax 0.65 (0.4-1.3 m/s) MV E' lateral 0.129 (>0.1 m/s) E/A Ratio 1.2 MV E/E' LAT 5.90 (<14) MV E' Average 0.108 m/s MV E/E'(average) 7.04 Aortic Valve AoV Vmax 1.21 m/s LVOT Vmax 1.20 m/s AoV Peak Grad 5.9 mmHg LVOT Peak Grad 5.7 mmHg AoV Area (Vmax) 2.48 cm2 LVOT VTI 0.244 m AoV VTI 0.279 m LVOT Mean Grad 2.8 mmHg AoV Mean Shady. 0.88 m/s LVOT SV 61.36 mL AoV Mean Grad 3.5 mmHg LVOT Diam s 1.75 cm AoV Area (VTI) 2.20 cm2 AV Regurg Peak Gr. 5.88 mmHg Velocity Ratio 0.99 Mitral Valve MV DT 221 (160-240 msec) Pulmonary Valve PV Vmax 0.90 (0.5-1.5 m/s) RVOT Vmax 0.89 m/s PV Peak Grad 3.3 mmHg RVOT Peak Gr. 3.2 mmHg PV Mean Shady 0.66 m/s RVOT VTI 0.231 m PV Mean Grad 2.0 mmHg RVOT Mean Gr. 1.9 mmHg
== END 2024-09-10 01:27 ==
LOC: DI 01:08
PROVIDERS: PCP Physician Assistant; Visit Provider Registered Nurse
DX: I21.4 Non-ST elevation (NSTEMI) myocardial infarction (principal)
CPT/HCPCS: 93306